=== PATIENT | female | born 1985 | race Caucasian/White ===

== ENCOUNTER 2017-01-27 08:58 | Emergency (ER) | payer BC, OTHER ==
[2017-01-27 09:17] VITALS: TEMP 98.6
[2017-01-27] MEDS ORDERED: METOCLOPRAMIDE 10 MG/2 ML VIAL IVP ONE (09:18)
[2017-01-27] MEDS ORDERED: DEXAMETHASONE 10 MG/ML VIAL IVP ONE (09:18)
[2017-01-27] MEDS ORDERED: NS 1,000 ML IV ONE (09:18)
--- NOTE | 2017-01-27 09:24 | EDPHY ---
H & P Time Seen by Provider: 01/27/17 09:06 HPI/ROS: HPI Headache. 31-year-old female by private vehicle. She complains of a relatively rapid onset left-sided frontal headache with radiation down the left side of her face , about 2 hours prior arrival. She does not describe it as maximal at onset or thunderclap. She has had headaches in the past but not to this extent. She has some tingling associated with this headache down the left side of her face as well. No rash. No changes in vision. No changes in hearing. No fever. No neck pain. No weakness or loss of sensation in her extremities. No other complaints. ROS: Constitutional: No fever, no chills. No weakness. Eyes: No discharge. No changes in vision. ENT: No sore throat. No nasal congestion or rhinorrhea. Respiratory: No cough. No shortness of breath. Cardiac: No chest pain, no palpitations. Gastrointestinal: No abdominal pain, no vomiting, no diarrhea. Genitourinary: No hematuria. No dysuria or increased frequency with urination. Musculoskeletal: No back pain. No neck pain. No myalgias or arthralgias. Skin: No rashes. Neurological: No headache. No focal weakness or altered sensation. Past medical history: No significant past medical history. Social history: Appendectomy, gastritis, latent tuberculosis. Has been on rifampin. Physical Exam: General Appearance: Alert, no distress. This patient is responding to questions appropriately and in full sentences. This patient appears well- hydrated and well-nourished. Head: Normocephalic atraumatic. No soft tissue changes or tenderness on palpation of the left temporal area. Eyes: Pupils equal and round no pallor or injection. No lid edema, erythema or injection. No nystagmus. No photophobia. Cornea are clear. ENT, Mouth: Mucous membranes are moist. The pharyngeal tissues are unremarkable. No edema or swelling. No asymmetry suggestive of abscess. No erythema or exudates. External auditory canals and tympanic membranes are clear bilaterally. No evidence of zoster. Respiratory: There are no retractions, lungs are clear to auscultation with good air movement bilaterally. Cardiovascular: Regular rate and rhythm. No murmur. Neurological: Motor sensory function is grossly intact. Cranial nerves are normal. Gait is normal. Skin: Warm and dry, no rashes. Musculoskeletal: Neck is supple and nontender. No tenderness on palpation of the lateral soft tissues of the neck and the suboccipital area. Extremities are symmetrical. All joints range without pain or impingement. Psychiatric: No agitation. No depression. Database: EKG: Imaging: CT scan of head without contrast: Negative. Results were discussed with staff radiologist Dr. Vipul Cross. Procedures: Emergency department course: IV placed. She was placed on a monitor. She was started on IV normal saline with 500 cc to 1 L to be given over the next hour. She has no history of renal dysfunction or contraindications to NSAIDs. Was initially given 10 mg of IV Decadron, 10 mg of IV Reglan and 25 mg of IV Benadryl. 9:50 a.m., patient re-evaluated. Resting comfortably at this time. Results of CT scan discussed with her. She states that she is feeling better. 10:15 a.m., patient re-evaluated. Resting comfortably at this time. Headache has completely resolved. She feels comfortable going home and is requesting discharge. Repeat neurologic Assessment is nonfocal. Plan will be to have her follow up with Neurology for re-evaluation in 2-3 days. I will provide her with a referral. Return to emergency department precautions were thoroughly discussed with her. All of her questions were answered. She was discharged in good condition. Differential Diagnosis: The differential diagnosis on this patient includes but is not limited to migraine syndrome, TMJ syndrome. Zayas's palsy, MS, zoster, subarachnoid hemorrhage, meningitis, encephalitis, cavernous sinus thrombosis, sagittal sinus thrombosis, temporal arteritis unlikely. This represents a partial list of diagnoses considered. These considerations are based on history, physical exam, past history, reassessment and diagnostic testing. Constitutional: Initial Vital Signs Temperature (C) 37 C 01/27/17 09:13 Heart Rate 58 L 01/27/17 09:13 Respiratory Rate 18 01/27/17 09:13 Blood Pressure 113/71 01/27/17 09:13 O2 Sat (%) 96 01/27/17 09:13 O2 Delivery Mode Room Air Allergies/Adverse Reactions: minocycline Allergy (Verified 01/27/17 09:12) posible ct dye/family hx Allergy (Uncoded 01/27/17 09:13) Home Medications: Medication Instructions Recorded DULoxetine [Cymbalta 60 MG (*)] 60 mg PO DAILY 01/27/17 Medical Decision Making - Diagnostics Imaging Results: Imaging Impressions Head CT 01/27/17 09:19 Impression: No acute intracranial findings. Findings discussed with Alber Vega MD 01/27/2017 at 936. - Data Points Medications Given: Discontinued Medications Dexamethasone (Decadron Injection) 10 mg IVP EDNOW ONE Stop: 01/27/17 09:19 Last Admin: 01/27/17 09:34 Dose: 10 mg Diphenhydramine HCl (Benadryl Injection) 25 mg IVP EDNOW ONE Stop: 01/27/17 09:19 Last Admin: 01/27/17 09:44 Dose: 25 mg Sodium Chloride (Ns) 1,000 mls @ 0 mls/hr IV ONCE ONE; Wide Open PRN Reason: Protocol Stop: 01/27/17 09:19 Last Admin: 01/27/17 09:40 Dose: 1,000 mls Metoclopramide HCl (Reglan Injection) 10 mg IVP EDNOW ONE Stop: 01/27/17 09:19 Last Admin: 01/27/17 09:49 Dose: 10 mg Departure - Departure Disposition: Home, Routine, Self-Care Clinical Impression: Headache Condition: Good Instructions: Temporomandibular Disorder (ED), Acute Headache (ED) Additional Instructions: Read and follow provided instructions. Follow-up with your primary care physician and or neurology in 1-2 days for re- evaluation as discussed. Return to the emergency department for return of headache, visual changes, fever , neck pain, loss of sensation or weakness in her extremities or other serious concerns. Referrals: Kristen Fraire PA [Primary Care Provider] - As per Instructions
[2017-01-27 11:08] VITALS: BP 111/62; PULSE 75; RESP 18; O2SAT 96
== END 2017-01-27 11:07 | disposition home or self-care (01) ==
LOC: CED 08:58
DX: R51 Headache (principal)
CPT/HCPCS: 70450-PO; 96374; J1200; J2765